=== PATIENT | male | born 1970 | race Caucasian/White ===

== ENCOUNTER 2022-05-25 11:27 | Outpatient (CLI) | payer BC ==
[2022-05-25 13:19] LABS: #Basophils 0.1 10x3/uL (0.0-0.2); #Eosinphils 0.6 10x3/uL (0.0-0.5); #Monocytes 1.1 10x3/uL (0.0-1.1); #Neutrophils 2.6 10x3/uL (1.5-8.4); %Basophils 1.8 % (0.0-2.0); %Eosinophils 8.5 % (0.0-6.0); %Lymphocytes 39.2 % (18.0-47.0); %Monocytes 14.7 % (0.0-10.0); %Neutrophils 35.7 % (40.0-75.0); Hemoglobin 12.9 g/dL (13.5-17.5); Mean Corpuscular HGB CONC 34.9 g/dL (32.0-36.0); Mean Corpuscular Hemoglobin 33.8 pg (27.0-33.0); Mean Corpuscular Volume 96.9 fl (81.2-95.1); Mean Platelet Volume 9.5 fl (7.4-10.4); Platelet Count 168 10x3/uL (150-450); RBC Distribution Width 13.7 % (11.5-14.5); Red Blood Cell (RBC) Count 3.82 10x6/uL (4.32-5.72); White Blood Cell (WBC) Count 7.3 10x3/uL (3.5-10.5)
[2022-05-25 13:22] LABS: INR-International Normal Ratio 1.3; Prothrombin Time 13.8 sec (9.5-12.1)
[2022-05-25 13:23] LABS: Anion Gap 13 mmol/L (10-20); BUN (Urea Nitrogen) 16 mg/dL (8.4-25.7); Calc. Creatinine Clearance 0 mL/min (70-130); Calcium 9.4 mg/dL (7.8-10.44); Carbon Dioxide 25 mmol/L (22-29); Chloride 101 mmol/L (98-107); Estimated GFR 91; Glucose 115 mg/dL (70-105); Potassium 4.2 mmol/L (3.5-5.1); Sodium 135 mmol/L (136-145)
== END 2022-05-25 11:28 | disposition home or self-care (01) ==
LOC: LABBT 11:27
PROVIDERS: ATTEND Orthopaedic Surgery
DX: Z01.818 Encounter for other preprocedural examination (principal); M87.9 Osteonecrosis, unspecified
CPT/HCPCS: 80048; 85025; 85610; 87081; 93005; 93010

== ENCOUNTER 2022-05-30 06:43 | Observation (INO) | payer OTHER ==
[2022-05-30] MEDS ORDERED: Sodium Chloride 0.9% 100 ML ONE ×2 (07:32→07:33)
[2022-05-30] MEDS ORDERED: CEFAZOLIN 2 GM VIAL ONE (07:32)
[2022-05-30] MEDS ORDERED: Lidocaine 1% MPF 2 ML VIAL ONE (07:32)
[2022-05-30] MEDS ORDERED: Vancomycin (BATCH) 1.5 GRAM/300 ML BAG ONE (07:32)
[2022-05-30] MEDS ORDERED: Tranexamic Acid 1,000 MG/10 ML VIAL ONE (07:33)
[2022-05-30] MEDS ORDERED: Bupivacaine PF 0.5% 30 ML VIAL ONE ×2 (08:17→08:56)
[2022-05-30] MEDS ORDERED: Midazolam HCl 2 mg/2 ml Vial ONE (08:17)
[2022-05-30] MEDS ORDERED: Fentanyl 100 MCG/2 ML VIAL ONE (08:17)
[2022-05-30 08:30] LABS: SARS-CoV-2 NAA Rapid Test Not Detected (NotDetected)
[2022-05-30] MEDS ORDERED: Propofol 500 MG/50 ML VIAL ONE (08:47)
[2022-05-30] MEDS ORDERED: Acetaminophen 325 MG TAB PO PRN (08:53)
[2022-05-30] MEDS ORDERED: HYDROcodone/Acetaminophen 10/325 mg Tablet PO PRN (08:53)
[2022-05-30] MEDS ORDERED: Promethazine HCl 25 MG/ML VIAL IM PRN (08:53)
[2022-05-30] MEDS ORDERED: Zolpidem Tartrate 5 MG TAB PO PRN (08:53)
[2022-05-30] MEDS ORDERED: Ondansetron PF 4 MG/2 ML Vial IVP PRN (08:53)
[2022-05-30] MEDS ORDERED: diphenhydrAMINE 25 MG CAP PO PRN (08:53)
[2022-05-30] MEDS ORDERED: Acetaminophen 500 MG TAB PO PRN (08:55)
[2022-05-30] MEDS ORDERED: Ondansetron PF 4 MG/2 ML Vial ONE (09:02)
[2022-05-30] MEDS ORDERED: PROPOFOL 200 MG/20 ML VIAL ONE (09:02)
[2022-05-30] MEDS ORDERED: PHENYLEPHRINE-NS 100 MCG/ML 10 ML SYRINGE ONE (09:02)
[2022-05-30] MEDS ORDERED: Lidocaine 1% PF 5 ML VIAL ONE (09:02)
[2022-05-30] MEDS ORDERED: Dexamethasone 20 MG/5 ML VIAL ONE (09:02)
[2022-05-30] MEDS ORDERED: Bupivacaine HCl 0.5%/Epinephrine 1:200,000/PF 30 ml Vial ONE (09:02)
[2022-05-30] MEDS: Ketorolac Tromethamine 30 MG/ML VIAL IVP SCH ×2 (14:12→21:27)
[2022-05-30] MEDS: CEFAZOLIN 2 GM in Sodium Chloride 0.9% 100 ML IVPB SCH ×2 (14:12→21:27)
[2022-05-30] MEDS: Sodium Chloride 0.9% 1,000 ML IV SCH ×2 (14:25→20:27)
[2022-05-30] MEDS: Ferrous Gluconate 324 MG TAB PO SCH ×2 (14:34→21:27)
[2022-05-30] MEDS: Aspirin 81 mg Enteric Coated Tablet PO SCH ×2 (14:34→21:27)
[2022-05-30] MEDS: Senokot S 8.6-50 MG TAB PO SCH ×2 (14:35→21:27)
[2022-05-30] MEDS: Multivitamin W/ Minerals 1 TAB PO SCH (14:35)
[2022-05-30] MEDS: HYDROcodone/Acetaminophen 10/325 mg Tablet PO PRN ×2 (15:40→21:28)
[2022-05-30 18:44] VITALS: BMI 27.1
[2022-05-31] MEDS: HYDROcodone/Acetaminophen 10/325 mg Tablet PO PRN (05:44)
[2022-05-31] MEDS: Sodium Chloride 0.9% 1,000 ML IV SCH (05:47)
[2022-05-31] MEDS: Ketorolac Tromethamine 30 MG/ML VIAL IVP SCH (06:00)
[2022-05-31 06:07] VITALS: BP 115/67; TEMP 97.7
[2022-05-31] MEDS: Ferrous Gluconate 324 MG TAB PO SCH (07:56)
[2022-05-31] MEDS: Senokot S 8.6-50 MG TAB PO SCH (07:56)
[2022-05-31] MEDS: Aspirin 81 mg Enteric Coated Tablet PO SCH (07:56)
[2022-05-31] MEDS: Multivitamin W/ Minerals 1 TAB PO SCH (07:56)
[2022-05-31 08:20] LABS: Hemoglobin 11.5 g/dL (14.0-18.0); Mean Corpuscular HGB CONC 34.5 g/dL (32.0-36.0); Mean Corpuscular Hemoglobin 35.7 pg (27.0-31.0); Mean Platelet Volume 7.5 fL (7.4-10.4); Platelet Count 114 10x3/uL (130-400); RBC Distribution Width 12.5 % (11.5-14.5); Red Blood Cell (RBC) Count 3.22 mill/uL (4.70-6.10); White Blood Cell (WBC) Count 10.5 10x3/uL (4.8-10.8)
== END 2022-05-31 08:10 | disposition home or self-care (01) ==
LOC: SDC 06:43 → SJJU 11:41
PROVIDERS: ADMIT Orthopaedic Surgery; ATTEND Orthopaedic Surgery
PROC: 0SR904A Replacement of Right Hip Joint with Ceramic on Polyethylene Synthetic Substitute, Uncemented, Open Approach (ICD-10-PCS; principal; 2022-05-30)
DX: M87.051 Idiopathic aseptic necrosis of right femur (principal); M19.90 Unspecified osteoarthritis, unspecified site; G89.4 Chronic pain syndrome; F17.210 Nicotine dependence, cigarettes, uncomplicated; Z79.82 Long term (current) use of aspirin; Z96.642 Presence of left artificial hip joint; Z20.822 Contact with and (suspected) exposure to COVID-19
CPT/HCPCS: 36415; 85027; 96374; 96375; 96376; C1776; G0378; J1100; J1885; J2250; J2405; J2704; J3010; J3370; J3490; J7050; S0020; U0002